=== PATIENT | female | born 1990 | race African-American/Black ===

== ENCOUNTER 2018-01-22 09:10 | Inpatient (IN) | payer MEDICAID ==
[2018-01-22] MEDS ORDERED: Sodium Chloride 0.9% 10 ML Syringe FLUSH PRN ×2 (09:18→09:21)
[2018-01-22] MEDS ORDERED: Sodium Chloride 0.9% 2.5 ML Syringe FLUSH PRN ×2 (09:18→09:21)
[2018-01-22] MEDS ORDERED: ceFAZolin 2 GM in Premix Bag 1 BAG IV ONE (09:18)
[2018-01-22] MEDS: Lactated Ringers 1,000 ML IV SCH ×4 (09:30→20:58)
[2018-01-22] MEDS ORDERED: Oxytocin/0.9 % Sodium Chloride 30 UNIT/500 ML BAG IV SCH ×2 (09:30)
[2018-01-22] MEDS ORDERED: Lactated Ringers 1,000 ML IV SCH (09:30)
[2018-01-22] MEDS ORDERED: Citric Acid/Sodium Citrate Solution 30 ML Cup PO SCH ×2 (09:30)
[2018-01-22] MEDS ORDERED: Oxytocin/0.9 % Sodium Chloride 30 UNIT/500 ML BAG ONE (09:40)
[2018-01-22] MEDS ORDERED: ceFAZolin/Dextrose,Iso-Osmotic 2 GM/50 ML Duplex Bag IV ONE (09:43)
[2018-01-22] MEDS ORDERED: Morphine PF 1 MG/ML Amp ONE (09:46)
[2018-01-22] MEDS ORDERED: Octyl 2-Cyanoacrylate 1 Tube ONE (09:50)
--- NOTE | 2018-01-22 09:52 | PCM.PREANE ---
Preanesthetic Assessment - Anesthesia/Transfusion/Family Hx Anesthesia History: Prior Anesthesia Without Reaction Family History of Anesthesia Reaction: No Transfusion History: No Prior Transfusion(s) Intubation History: Unknown - Review of Systems General: No Symptoms Pulmonary: No Symptoms Cardiovascular: No Symptoms Gastrointestinal: No Symptoms Neurological: No Symptoms Other: Reports: None - Physical Assessment Height: 1.63 m Weight: 85.729 kg ASA Class: 2 Mental Status: Alert & Oriented x3 Airway Class: Mallampati = 1 Dentition: Reports: Normal Dentition Thyro-Mental Finger Breadths: 3 Mouth Opening Finger Breadths: 3 ROM/Head Extension: Full Lungs: Clear to Auscultation, Normal Respiratory Effort Cardiovascular: Regular Rate, Regular Rhythm - Lab Values: Laboratory Last Values WBC 7.56 K/uL (4.0-11.0) 01/22/18 09:25 RBC 4.77 M/uL (4.30-5.90) 01/22/18 09:25 Hgb 11.5 g/dL (12.0-16.0) L 01/22/18 09:25 Hct 37.6 % (36.0-46.0) 01/22/18 09:25 MCV 78.8 fL (80.0-98.0) L 01/22/18 09:25 MCH 24.1 pg (27.0-32.0) L 01/22/18 09:25 MCHC 30.6 g/dL (31.0-37.0) L 01/22/18 09:25 RDW Std Deviation 45.8 fl (28.0-62.0) 01/22/18 09:25 RDW Coeff of [place]om[place] 16 % (11.0-15.0) H 01/22/18 09:25 Plt Count 292 K/uL (150-400) 01/22/18 09:25 MPV 11.10 fL (7.40-12.00) 01/22/18 09:25 Nucleated RBC % 0.0 /100WBC 01/22/18 09:25 Nucleated RBCs # 0 K/uL 01/22/18 09:25 - Allergies Allergies/Adverse Reactions: Allergies Allergy/AdvReac Type Severity Reaction Status Date / Time No Known Allergies Allergy Verified 01/18/18 08:52 - Blood Blood Available: No - Anesthesia Plan Pre-Op Medication Ordered: None - Acknowledgements Anesthesia Type Planned: Spinal Pt an Appropriate Candidate for the Planned Anesthesia: Yes Alternatives and Risks of Anesthesia Discussed w Pt/Guardian: Yes Pt/Guardian Understands and Agrees with Anesthesia Plan: Yes PreAnesthesia Questionnaire Genitourinary History: Reports: None [employer] History: Reports: Endocrine/Metabolic History: Reports: Obesity/BMI 30+ - Past Surgical History Head Surgeries/Procedures: Reports: None Female Surgical History: Reports: Section (x2) - SUBSTANCE USE Smoking Status *Q: Never Smoker Recreational Drug Use History: No - HOME MEDS Home Medications: Home Meds . [No Known Home Meds] 01/18/18 [History] - CURRENT (IN HOUSE) MEDS Current Meds: Current Medications Citric Acid/Sodium Citrate (Bicitra Solution) 30 ml PO .ONCE ALESSIA Citric Acid/Sodium Citrate (Bicitra Solution) 30 ml PO .ONCE ALESSIA Lactated Ringer's (Ringers, Lactated) 1,000 mls @ 500 mls/hr IV .BOLUS ALESSIA Last Admin: 01/22/18 09:30 Dose: 500 mls/hr Oxytocin/Sodium Chloride (Oxytocin 30 Unit/500 Ml-Ns) 30 unit in 500 mls @ 250 mls/hr IV TITRATE ALESSIA Oxytocin/Sodium Chloride (Oxytocin 30 Unit/500 Ml-Ns) 30 unit in 500 mls @ 250 mls/hr IV TITRATE ALESSIA Lactated Ringer's (Ringers, Lactated) 1,000 mls @ 500 mls/hr IV .BOLUS ALESSIA Sodium Chloride (Saline Flush) 10 ml FLUSH ASDIRECTED PRN PRN Reason: Keep Vein Open Sodium Chloride (Saline Flush) 2.5 ml FLUSH ASDIRECTED PRN PRN Reason: Keep Vein Open Sodium Chloride (Saline Flush) 10 ml FLUSH ASDIRECTED PRN PRN Reason: Keep Vein Open Sodium Chloride (Saline Flush) 2.5 ml FLUSH ASDIRECTED PRN PRN Reason: Keep Vein Open Discontinued Medications Cefazolin Sodium/Dextrose (Ancef) Confirm Administered Dose 2 gm IV .STK-MED ONE Stop: 01/22/18 09:44 Cefazolin Sodium/Dextrose 2 gm (/ Premix) 50 mls @ 100 mls/hr IV ONETIME ONE Stop: 01/22/18 09:47 Oxytocin/Sodium Chloride (Oxytocin 30 Unit/500 Ml-Ns) Confirm Administered Dose 30 unit in 500 mls @ as directed .ROUTE .STK-MED ONE Stop: 01/22/18 09:41 Morphine Sulfate (Duramorph Pf) Confirm Administered Dose 1 mg .ROUTE .STK-MED ONE Stop: 01/22/18 09:47
[2018-01-22] MEDS ORDERED: ePHEDrine 50 MG/ML SDV ONE (10:40)
[2018-01-22] MEDS ORDERED: Acetaminophen/oxyCODONE 325-5 MG Tab PO PRN (11:18)
[2018-01-22] MEDS ORDERED: Bisacodyl 10 MG Supp RECTAL PRN (11:18)
[2018-01-22] MEDS ORDERED: diphenhydrAMINE 50 MG/ML SDV IVPUSH PRN (11:18)
[2018-01-22] MEDS ORDERED: Ondansetron 4 MG/2 ML SDV IV PRN (11:18)
[2018-01-22] MEDS ORDERED: Lanolin 100% Cream 7 GM Tube TOP PRN (11:18)
[2018-01-22] MEDS ORDERED: Ibuprofen 800 MG Tab PO PRN (11:18)
--- NOTE | 2018-01-22 11:21 | PCM.LDHP ---
L&D History of Present Illness - General Date of Service: 01/22/18 Admit Problem/Dx: Patient Status Order with Admit Dx/Problem 01/22/18 09:18 Patient Status [ADT] Routine 01/22/18 09:21 Patient Status [ADT] Routine 01/22/18 11:18 Patient Status [ADT] Routine Admission Diagnosis/Problem Admission Diagnosis/Problem Source of Information: Patient History Limitations: Reports: No Limitations - History of Present Illness Improves with: Reports: None Worsens with: Reports: None Associated Symptoms: Reports: N - Related Data Allergies/Adverse Reactions: Allergies Allergy/AdvReac Type Severity Reaction Status Date / Time No Known Allergies Allergy Verified 01/18/18 08:52 Home Medications: Home Meds . 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 [employer] History: Reports: Endocrine/Metabolic History: Reports: Obesity/BMI 30+ - Past Surgical History Head Surgeries/Procedures: Reports: None Female Surgical History: Reports: Section (x2) Social & Family History - Family History Family Medical History: Noncontributory - Tobacco Use Smoking Status *Q: Never Smoker Second Hand Smoke Exposure: No - Recreational Drug Use Recreational Drug Use: No H&P Review of Systems - Review of Systems: Review Of Systems: See Below General: Reports: No Symptoms HEENT: Reports: No Symptoms Pulmonary: Reports: No Symptoms Cardiovascular: Reports: No Symptoms Gastrointestinal: Reports: No Symptoms Genitourinary: Reports: No Symptoms Musculoskeletal: Reports: No Symptoms Skin: Reports: No Symptoms Psychiatric: Reports: No Symptoms Neurological: Reports: No Symptoms Hematologic/Lymphatic: Reports: No Symptoms Immunologic: Reports: No Symptoms L&D Exam - Exam Exam: See Below - Vital Signs Weight: 87.09 kg - OB Specific Contraction Intensity: Mild Movement: Active Heart Tones: Present Presentation: Vertex - Exam General: Alert, Oriented HEENT: PERRLA, Conjunctiva Clear, EACs Clear, EOMI, Hearing Intact, Mucosa Moist & [place], Nares Patent, Normal Nasal Septum, Posterior Pharynx Clear, TMs Clear Neck: Supple, Trachea Midline Lungs: Clear to Auscultation, Normal Respiratory Effort Cardiovascular: Regular Rate, Regular Rhythm GI/Abdominal Exam: Normal Bowel Sounds, Soft, Non-Tender, No Organomegaly, No Distention, No Abnormal Bruit, No Mass, Pelvis Stable Rectal Exam: Normal Exam, Normal Rectal Tone Genitourinary: Normal external exam, Normal bimanual exam, Normal speculum exam Back Exam: Normal Inspection, Full Range of Motion Extremities: Normal Inspection, Normal Range of Motion, Non-Tender, No Pedal Edema, Normal Capillary Refill Skin: Warm, Dry, Intact Neurological: Cranial Nerves Intact, Reflexes Equal Bilateral Psychiatric: Alert, Normal Affect, Normal Mood - Patient Data Lab Results Last 24 hrs: Laboratory Results - last 24 hr 01/22/18 01/22/18 Range/Units 09:25 09:33 WBC 7.56 (4.0-11.0) K/uL RBC 4.77 (4.30-5.90) M/uL Hgb 11.5 L (12.0-16.0) g/dL Hct 37.6 (36.0-46.0) % MCV 78.8 L (80.0-98.0) fL MCH 24.1 L (27.0-32.0) pg MCHC 30.6 L (31.0-37.0) g/dL RDW Std Deviation 45.8 (28.0-62.0) fl RDW Coeff of Salom[place] 16 H (11.0-15.0) % Plt Count 292 (150-400) K/uL MPV 11.10 (7.40-12.00) fL Nucleated RBC % 0.0 /100WBC Nucleated RBCs # 0 K/uL Blood Type B NEGATIVE Antibody Screen NEGATIVE Result Diagrams: 01/22/18 09:25 Problem List Initiated/Reviewed/Updated: Yes Orders Last 24hrs: Active Orders 24 hr Category Date Time Status Patient Status [ADT] Routine ADT 01/22/18 11:18 Ordered Ambulate [RC] PER UNIT ROUTINE Care 01/22/18 11:18 Ordered Communication Order [RC] PER UNIT ROUTINE Care 01/22/18 11:18 Ordered Communication Order [RC] PER UNIT ROUTINE Care 01/22/18 11:18 Ordered Communication Order [RC] Per Unit Routine Care 01/22/18 11:18 Ordered Non Stress Test [RC] PER UNIT ROUTINE Care 01/22/18 09:18 Active Non Stress Test [RC] PER UNIT ROUTINE Care 01/22/18 09:21 Active May Shower [RC] ASDIRECTED Care 01/22/18 11:18 Ordered Notify Provider Vital Signs [RC] PRN Care 01/22/18 09:19 Active Procedure Site Prep Instruct [RC] ASDIRECTED Care 01/22/18 09:18 Active Procedure Site Prep Instruct [RC] ASDIRECTED Care 01/22/18 09:21 Active RT Incentive Spirometry [RC] Q2HWA Care 01/22/18 11:18 Ordered Up ad Flora [RC] ASDIRECTED Care 01/22/18 09:18 Active Up ad Flora [RC] ASDIRECTED Care 01/22/18 09:21 Active Verify Patient Consent Obtain [RC] ASDIRECTED Care 01/22/18 09:18 Active Verify Patient Consent Obtain [RC] ASDIRECTED Care 01/22/18 09:21 Active Vital Signs [RC] PER UNIT ROUTINE Care 01/22/18 09:18 Active Vital Signs [RC] PER UNIT ROUTINE Care 01/22/18 09:21 Active Vital Signs [RC] PER UNIT ROUTINE Care 01/22/18 11:18 Ordered HEMOGLOBIN/HEMATOCRIT,HH [HEME] Timed Lab 01/23/18 05:11 Ordered Acetaminophen/oxyCODONE [Percocet 325-5 MG] Med 01/22/18 11:18 Ordered 1 tab PO Q4H PRN Acetaminophen/oxyCODONE [Percocet 325-5 MG] Med 01/22/18 11:18 Ordered 2 tab PO Q4H PRN Bisacodyl [Dulcolax] Med 01/22/18 11:18 Ordered 10 mg RECTAL .ONCE PRN Citric Acid/Sodium Citrate [Bicitra Solution] Med 01/22/18 09:30 Active 30 ml PO .ONCE Citric Acid/Sodium Citrate [Bicitra Solution] Med 01/22/18 09:30 Active 30 ml PO .ONCE Docusate Sodium [Colace] Med 01/22/18 21:00 Ordered 100 mg PO BID Ibuprofen [Motrin] Med 01/22/18 11:18 Ordered 800 mg PO Q8H PRN Ketorolac [Toradol] Med 01/22/18 11:30 Ordered 30 mg IVPUSH Q6H Lactated Ringers @ 125 MLS/HR(1000ml) Med 01/22/18 11:30 Ordered Lactated Ringers [Ringers, Lactated] 1,000 ml IV ASDIRECTED Lactated Ringers [Ringers, Lactated] 1,000 ml [facility] 01/22/18 09:30 Active IV .BOLUS Lactated Ringers [Ringers, Lactated] 1,000 ml [facility] 01/22/18 09:30 Active IV .BOLUS Lanolin [Lansinoh HPA] [facility] 01/22/18 11:18 Ordered See Dose Instructions TOP ASDIRECTED PRN Ondansetron [Zofran] [facility] 01/22/18 11:18 Ordered 4 mg IV Q4H PRN Oxytocin/0.9 % Sodium Chloride [Oxytocin 30 Unit/500 ML [facility] 01/22/18 09:30 Active -NS] 30 unit in 500 ml IV TITRATE Oxytocin/0.9 % Sodium Chloride [Oxytocin 30 Unit/500 ML [facility] 01/22/18 09:30 Active -NS] 30 unit in 500 ml IV TITRATE Sodium Chloride 0.9% [Saline Flush] [facility] 01/22/18 09:18 Active 10 ml FLUSH ASDIRECTED PRN Sodium Chloride 0.9% [Saline Flush] [facility] 01/22/18 09:21 Active 10 ml FLUSH ASDIRECTED PRN Sodium Chloride 0.9% [Saline Flush] [facility] 01/22/18 09:18 Active 2.5 ml FLUSH ASDIRECTED PRN Sodium Chloride 0.9% [Saline Flush] [facility] 01/22/18 09:21 Active 2.5 ml FLUSH ASDIRECTED PRN diphenhydrAMINE [Benadryl] [facility] 01/22/18 11:18 Ordered 25 mg IVPUSH Q6H PRN Assess Lochia [WOMSER] Per Unit Routine [facility] 01/22/18 11:18 Ordered Assess Uterine Involution [WOMSER] Per Unit Routine [facility] 01/22/18 11:18 Ordered Breast Pump [WOMSER] Per Unit Routine [facility] 01/22/18 11:18 Ordered Peripheral IV Discontinue [OM.PC] Routine [facility] 01/22/18 11:18 Ordered Peripheral IV Insertion Adult [OM.PC] Routine [facility] 01/22/18 09:18 Ordered Peripheral IV Insertion Adult [OM.PC] Routine [facility] 01/22/18 09:21 Ordered Schedule Procedure [COMM] Per Unit Routine [facility] 01/22/18 09:21 Ordered Sequential Compression Device [OM.PC] Per Unit Routine [facility] 01/22/18 11:18 Ordered Resuscitation Status Routine Resus Stat 01/22/18 09:18 Ordered Medication Orders Citric Acid/Sodium Citrate (Bicitra Solution) 30 ml PO .ONCE ALESSIA Citric Acid/Sodium Citrate (Bicitra Solution) 30 ml PO .ONCE ALESSIA Lactated Ringer's (Ringers, Lactated) 1,000 mls @ 500 mls/hr IV .BOLUS ALESSIA Last Admin: 01/22/18 10:05 Dose: 500 mls/hr Infusion: 01/22/18 10:05 Dose: 500 mls/hr Admin: 01/22/18 09:30 Dose: 500 mls/hr Oxytocin/Sodium Chloride (Oxytocin 30 Unit/500 Ml-Ns) 30 unit in 500 mls @ 250 mls/hr IV TITRATE ALESSIA Oxytocin/Sodium Chloride (Oxytocin 30 Unit/500 Ml-Ns) 30 unit in 500 mls @ 250 mls/hr IV TITRATE ALESSIA Lactated Ringer's (Ringers, Lactated) 1,000 mls @ 500 mls/hr IV .BOLUS ALESSIA Sodium Chloride (Saline Flush) 10 ml FLUSH ASDIRECTED PRN PRN Reason: Keep Vein Open Sodium Chloride (Saline Flush) 2.5 ml FLUSH ASDIRECTED PRN PRN Reason: Keep Vein Open Sodium Chloride (Saline Flush) 10 ml FLUSH ASDIRECTED PRN PRN Reason: Keep Vein Open Sodium Chloride (Saline Flush) 2.5 ml FLUSH ASDIRECTED PRN PRN Reason: Keep Vein Open Assessment/Plan Comment:: Termpregnancy admitted for elective repeat C/section.
--- NOTE | 2018-01-22 11:22 | PCM.OPNOTE ---
- General Post-Op/Procedure Note Date of Surgery/Procedure: 01/22/18 Operative Procedure(s): Repeat C/section Post-Op Diagnosis: Same Anesthesia Technique: Spinal Primary Surgeon: Anuj Barr EBL in mLs: 700 Complications: None Condition: Good
--- NOTE | 2018-01-22 11:45 | PCM.POSTAN ---
POST ANESTHESIA ASSESSMENT - MENTAL STATUS Mental Status: Alert, Oriented - RESPIRATORY Respiratory Status: Respiratory Rate WNL, Airway Patent, O2 Saturation Stable - CARDIOVASCULAR CV Status: Pulse Rate WNL, Blood Pressure Stable - GASTROINTESTINAL GI Status: No Symptoms - POST OP HYDRATION Hydration Status: Adequate & Stable
--- NOTE | 2018-01-22 12:04 | OR ---
SURGEON: Anuj Barr MD DATE OF PROCEDURE: PREOPERATIVE DIAGNOSES: 1. Term . 2. Previous section. 3. Admitted for elective repeat section. POSTOPERATIVE DIAGNOSES: 1. Term . 2. Previous section. 3. Admitted for elective repeat section. OPERATION PERFORMED: Repeat low-transverse section. COLLET MAKER: OR merissa. ANESTHESIA: Spinal Dr. Valdes. ESTIMATED BLOOD LOSS: 700 mL. COMPLICATIONS: None. FINDINGS: Male fetus. score reported to be 8 and 9. The weight is 9 pounds. INDICATION FOR SURGERY: The patient had a previous section. She is admitted for elective repeat section. PROCEDURE IN DETAIL: The patient was brought to the OR, properly identified. After adequate level of anesthesia, the patient was placed in lithotomy position, prepped and draped in sterile fashion as usual with a Santizo catheter in the bladder. After taking time-out, a low-transverse Pfannenstiel skin incision was done through the old scar. Mireya fascia and rectus fascia opened in the direction of the incision. The 2 recti muscles were and peritoneal cavity was entered. Bladder flap was raised in the usual manner and then low-transverse uterine incision extended manually with the hand. Fetus was delivered, handed to the nurse resuscitator, who was present at the time of the delivery. The fetus cried and score reported to be 8 and 9 and the weight is 9 pounds. The placenta delivered spontaneous, complete, and intact and repair of the lower uterine segment was done with 2-0 Vicryl continuous interlocking for 2 layers. Reperitonealization done with 3-0 Vicryl continuous and then the peritoneal cavity closed with 3-0 Vicryl continuous and closed with 3-0 Vicryl and the rectus fascia was closed with #1 PDS double strand continuous, Mireya's fascia with 3-0 Vicryl continuous, and the skin closed with skin clips, Insorb, and Dermabond. Instrument and sponge count correct. The patient tolerated the procedure well, went to recovery room in stable general condition. LAUREN / LA /[id number]
[2018-01-22] MEDS ORDERED: Nalbuphine 10 MG/ML 10 ML MDV IVPUSH PRN (12:35)
[2018-01-22] MEDS ORDERED: Naloxone 0.4 MG/ML Syringe IVPUSH PRN (12:35)
[2018-01-22] MEDS: Ketorolac 30 MG/ML SDV IVPUSH SCH ×2 (12:36→23:10)
[2018-01-22] MEDS ORDERED: Methylergonovine 0.2 MG/1 ML Amp IM PRN (16:59)
[2018-01-22] MEDS ORDERED: Methylergonovine 0.2 MG/1 ML Amp ONE (17:09)
[2018-01-22] MEDS ORDERED: Morphine 4 MG/ML Syringe IVPUSH PRN (20:35)
[2018-01-22] MEDS: Docusate Sodium 100 MG Cap PO SCH (22:13)
[2018-01-22] MEDS: diphenhydrAMINE 50 MG/ML SDV IVPUSH PRN (22:13)
[2018-01-23] MEDS: Acetaminophen/oxyCODONE 325-5 MG Tab PO PRN ×2 (04:38→16:22)
[2018-01-23] MEDS: diphenhydrAMINE 50 MG/ML SDV IVPUSH PRN (04:39)
[2018-01-23] MEDS: Lactated Ringers 1,000 ML IV SCH (05:09)
--- NOTE | 2018-01-23 06:24 | PCM.PNPP ---
- General Info Date of Service: 01/23/18 Admission Dx/Problem (Free Text): Patient Status Order with Admit Dx/Problem 01/22/18 09:18 Patient Status [ADT] Routine 01/22/18 09:21 Patient Status [ADT] Routine 01/22/18 11:18 Patient Status [ADT] Routine Admission Diagnosis/Problem Admission Diagnosis/Problem Functional Status: Reports: Pain Controlled, Tolerating Diet - Review of Systems General: Reports: No Symptoms HEENT: Reports: No Symptoms Pulmonary: Reports: No Symptoms Cardiovascular: Reports: No Symptoms Gastrointestinal: Reports: No Symptoms Genitourinary: Reports: No Symptoms Musculoskeletal: Reports: No Symptoms Skin: Reports: No Symptoms Neurological: Reports: No Symptoms Psychiatric: Reports: No Symptoms - General Info Date of Service: 01/23/18 - Patient Data Vital Signs - Most Recent: Last Vital Signs Temp 36.4 C 01/23/18 04:30 Pulse 98 01/23/18 01:28 Resp 15 01/23/18 05:00 BP 103/62 01/23/18 04:30 Pulse Ox 96 01/23/18 05:00 Weight - Most Recent: 87.09 kg I&O - Last 24 Hours: Intake & Output 01/22/18 01/22/18 01/23/18 14:59 22:59 06:59 Intake Total 1500 3200 1002 Output Total 950 2900 1015 Balance 550 300 -13 Lab Results - Last 24 Hours: Laboratory Results - last 24 hr 01/22/18 01/22/18 01/22/18 Range/Units 09:25 09:33 12:18 WBC 7.56 (4.0-11.0) K/uL RBC 4.77 (4.30-5.90) M/uL Hgb 11.5 L (12.0-16.0) g/dL Hct 37.6 (36.0-46.0) % MCV 78.8 L (80.0-98.0) fL MCH 24.1 L (27.0-32.0) pg MCHC 30.6 L (31.0-37.0) g/dL RDW Std Deviation 45.8 (28.0-62.0) fl RDW Coeff of [place]om[place] 16 H (11.0-15.0) % Plt Count 292 (150-400) K/uL MPV 11.10 (7.40-12.00) fL Nucleated RBC % 0.0 /100WBC Nucleated RBCs # 0 K/uL Blood Type B NEGATIVE Antibody Screen NEGATIVE Screen NEGATIVE (NEGATIVE) RhIG Candidate? YES Rhogam Indicated YES, BABY RH POS H 01/22/18 Range/Units 17:18 WBC (4.0-11.0) K/uL RBC (4.30-5.90) M/uL Hgb 9.6 L (12.0-16.0) g/dL Hct 31.5 L (36.0-46.0) % MCV (80.0-98.0) fL MCH (27.0-32.0) pg MCHC (31.0-37.0) g/dL RDW Std Deviation (28.0-62.0) fl RDW Coeff of [place]om[place] (11.0-15.0) % Plt Count (150-400) K/uL MPV (7.40-12.00) fL Nucleated RBC % /100WBC Nucleated RBCs # K/uL Blood Type Antibody Screen Screen (NEGATIVE) RhIG Candidate? Rhogam Indicated Med Orders - Current: Current Medications Bisacodyl (Dulcolax) 10 mg RECTAL .ONCE PRN PRN Reason: Constipation Diphenhydramine HCl (Benadryl) 25 mg IVPUSH Q6H PRN PRN Reason: Itching or Nausea Diphenhydramine HCl (Benadryl) 25 mg IVPUSH Q4H PRN PRN Reason: Itching Stop: 01/23/18 12:40 Last Admin: 01/23/18 04:39 Dose: 25 mg Docusate Sodium (Colace) 100 mg PO BID [facility] Last Admin: 01/22/18 22:13 Dose: 100 mg Emollient Ointment (Lansinoh Hpa) 0 gm TOP ASDIRECTED PRN PRN Reason: Sore Nipples Lactated Ringer's (Ringers, Lactated) 1,000 mls @ 125 mls/hr IV ASDIRECTED [facility] Last Admin: 01/23/18 05:09 Dose: 125 mls/hr Ibuprofen (Motrin) 800 mg PO Q8H PRN PRN Reason: mild pain or fever Methylergonovine Maleate (Methergine) 0.2 mg IM Q4H PRN PRN Reason: Bleeding Last Admin: 01/22/18 17:12 Dose: 0.2 mg Morphine Sulfate (Morphine) 4 mg IVPUSH Q4H PRN PRN Reason: Pain Nalbuphine HCl (Nubain) 5 mg IVPUSH Q3H PRN PRN Reason: Pruritis Stop: 01/23/18 12:39 Naloxone HCl (Narcan) 0.1 mg IVPUSH ONETIME PRN PRN Reason: Respiratory Depression Stop: 01/23/18 12:39 Ondansetron HCl (Zofran) 4 mg IV Q4H PRN PRN Reason: Nausea/Vomiting Last Admin: 01/22/18 20:07 Dose: 4 mg Oxycodone/Acetaminophen (Percocet 325-5 Mg) 1 tab PO Q4H PRN PRN Reason: Pain (moderate 4-6) Last Admin: 01/23/18 04:38 Dose: 1 tab Oxycodone/Acetaminophen (Percocet 325-5 Mg) 2 tab PO Q4H PRN PRN Reason: Pain (moderate 4-6) Sodium Chloride (Saline Flush) 10 ml FLUSH ASDIRECTED PRN PRN Reason: Keep Vein Open Sodium Chloride (Saline Flush) 2.5 ml FLUSH ASDIRECTED PRN PRN Reason: Keep Vein Open Sodium Chloride (Saline Flush) 10 ml FLUSH ASDIRECTED PRN PRN Reason: Keep Vein Open Sodium Chloride (Saline Flush) 2.5 ml FLUSH ASDIRECTED PRN PRN Reason: Keep Vein Open Discontinued Medications Cefazolin Sodium/Dextrose (Ancef) Confirm Administered Dose 2 gm IV .STK-MED ONE Stop: 01/22/18 09:44 Citric Acid/Sodium Citrate (Bicitra Solution) 30 ml PO .ONCE ALESSIA Citric Acid/Sodium Citrate (Bicitra Solution) 30 ml PO .ONCE ALESSIA Ephedrine Sulfate (Ephedrine Sulfate) Confirm Administered Dose 50 mg .ROUTE .STK-MED ONE Stop: 01/22/18 10:41 Cefazolin Sodium/Dextrose 2 gm (/ Premix) 50 mls @ 100 mls/hr IV ONETIME ONE Stop: 01/22/18 09:47 Last Admin: 01/22/18 23:10 Dose: Not Given Lactated Ringer's (Ringers, Lactated) 1,000 mls @ 500 mls/hr IV .BOLUS LAESSIA Last Admin: 01/22/18 10:05 Dose: 500 mls/hr Oxytocin/Sodium Chloride (Oxytocin 30 Unit/500 Ml-Ns) 30 unit in 500 mls @ 250 mls/hr IV TITRATE ALESSIA Oxytocin/Sodium Chloride (Oxytocin 30 Unit/500 Ml-Ns) 30 unit in 500 mls @ 250 mls/hr IV TITRATE ALESSIA Lactated Ringer's (Ringers, Lactated) 1,000 mls @ 500 mls/hr IV .BOLUS ALESSIA Oxytocin/Sodium Chloride (Oxytocin 30 Unit/500 Ml-Ns) Confirm Administered Dose 30 unit in 500 mls @ as directed .ROUTE .STK-MED ONE Stop: 01/22/18 09:41 Last Admin: 01/22/18 23:08 Dose: Not Given Ketorolac Tromethamine (Toradol) 30 mg IVPUSH Q6H [facility] Stop: 01/23/18 11:31 Last Admin: 01/22/18 23:10 Dose: Not Given Methylergonovine Maleate (Methergine) Confirm Administered Dose 0.2 mg .ROUTE .STK-MED ONE Stop: 01/22/18 17:10 Last Admin: 01/22/18 23:08 Dose: Not Given Morphine Sulfate (Duramorph Pf) Confirm Administered Dose 1 mg .ROUTE .STK-MED ONE Stop: 01/22/18 09:47 Octyl Cyanoacrylate (Dermabond Advance) Confirm Administered Dose 1 applic .ROUTE .STK-MED ONE Stop: 01/22/18 09:51 - Infant Interaction Disposition, : [place] in Room with Family Interaction: Holding Infant Infant Feeding: Bottle Fed Infant Support Person: - Recovery Exam Fundal Tone: Firm Fundal Level: At Umbilicus Fundal Placement: Midline Lochia Amount: Scant Lochia Color: Rubra/Red Perineum Description: Intact, Minimal Bruising/Swelling Episiotomy/Laceration: None Bladder Status: Indwelling Catheter in Place Urinary Elimination: Indwelling Catheter - Exam General: Alert, Oriented, Cooperative, No Acute Distress Lungs: Clear to Auscultation, Normal Respiratory Effort Cardiovascular: Regular Rate, Regular Rhythm, No Murmurs GI/Abdominal Exam: Normal Bowel Sounds, Soft, Non-Tender, No Organomegaly, No Distention, No Abnormal Bruit, No Mass, Pelvis Stable Extremities: Normal Inspection, Normal Range of Motion, Non-Tender, No Pedal Edema, Normal Capillary Refill Skin: Warm, Dry, Intact Wound/Incisions: Healing Well, Dressing Dry and Intact Neurological: No New Focal Deficit, Normal Speech, Normal Tone Psy/Mental Status: Alert, Normal Affect, Normal Mood - Problem List & Annotations (1) Supervision of normal IUP (intrauterine ) in multigravida SNOMED Code(s): 715651181, 382073225, 647449367 Code(s): Z34.80 - ENCOUNTER FOR SUPRVSN OF NORMAL , UNSP TRIMESTER Status: Acute Priority: High Current Visit: Yes Qualifiers: Trimester: third trimester Qualified Code(s): Z34.83 - Encounter for supervision of other normal , third trimester (2) delivery delivered SNOMED Code(s): 764624789 Code(s): O82 - ENCOUNTER FOR DELIVERY WITHOUT INDICATION Status: Acute Priority: High Current Visit: Yes - Problem List Review Problem List Initiated/Reviewed/Updated: Yes - Plan Plan:: Termpregnancy admitted for elective repeat C/section. Post day 1 A: RCS, pp day 1, VSS, AF, dressing dry and intact. Lochia small. Santizo to BSB, in room, holding and bonding well. Partner sleeping at BS. P: Continue pp plan of care. Encouraged to walk.
--- NOTE | 2018-01-23 08:06 | PCM48HPAN ---
Post Anesthesia Note - EVALUATION WITHIN 48HRS OF ANESTHETIC Vital Signs in Normal Range: Yes Patient Participated in Evaluation: Yes Respiratory Function Stable: Yes Airway Patent: Yes Cardiovascular Function Stable: Yes Hydration Status Stable: Yes Pain Control Satisfactory: Yes Nausea and Vomiting Control Satisfactory: Yes Mental Status Recovered: Yes Resp Rate: 15
[2018-01-23] MEDS: Docusate Sodium 100 MG Cap PO SCH ×2 (09:24→21:37)
[2018-01-24] MEDS: Acetaminophen/oxyCODONE 325-5 MG Tab PO PRN ×3 (01:34→12:51)
[2018-01-24] MEDS: Docusate Sodium 100 MG Cap PO SCH (08:03)
--- NOTE | 2018-01-24 08:57 | PCM.PNPP ---
- General Info Date of Service: 01/24/18 Functional Status: Reports: Pain Controlled - Review of Systems General: Reports: No Symptoms HEENT: Reports: No Symptoms Pulmonary: Reports: No Symptoms Cardiovascular: Reports: No Symptoms Gastrointestinal: Reports: No Symptoms Genitourinary: Reports: No Symptoms Musculoskeletal: Reports: No Symptoms Skin: Reports: No Symptoms Neurological: Reports: No Symptoms Psychiatric: Reports: No Symptoms - General Info Date of Service: 01/24/18 - Patient Data Vital Signs - Most Recent: Last Vital Signs Temp 36.7 C 01/24/18 08:01 Pulse 73 01/24/18 08:01 Resp 16 01/24/18 08:01 BP 102/59 L 01/24/18 08:01 Pulse Ox 98 01/24/18 08:01 Weight - Most Recent: 87.09 kg Med Orders - Current: Current Medications Bisacodyl (Dulcolax) 10 mg RECTAL .ONCE PRN PRN Reason: Constipation Diphenhydramine HCl (Benadryl) 25 mg IVPUSH Q6H PRN PRN Reason: Itching or Nausea Docusate Sodium (Colace) 100 mg PO BID [facility] Last Admin: 01/24/18 08:03 Dose: 100 mg Emollient Ointment (Lansinoh Hpa) 0 gm TOP ASDIRECTED PRN PRN Reason: Sore Nipples Lactated Ringer's (Ringers, Lactated) 1,000 mls @ 125 mls/hr IV ASDIRECTED [facility] Last Admin: 01/23/18 05:09 Dose: 125 mls/hr Ibuprofen (Motrin) 800 mg PO Q8H PRN PRN Reason: mild pain or fever Last Admin: 01/24/18 08:04 Dose: 800 mg Methylergonovine Maleate (Methergine) 0.2 mg IM Q4H PRN PRN Reason: Bleeding Last Admin: 01/22/18 17:12 Dose: 0.2 mg Morphine Sulfate (Morphine) 4 mg IVPUSH Q4H PRN PRN Reason: Pain Ondansetron HCl (Zofran) 4 mg IV Q4H PRN PRN Reason: Nausea/Vomiting Last Admin: 01/22/18 20:07 Dose: 4 mg Oxycodone/Acetaminophen (Percocet 325-5 Mg) 1 tab PO Q4H PRN PRN Reason: Pain (moderate 4-6) Last Admin: 01/24/18 08:03 Dose: 1 tab Oxycodone/Acetaminophen (Percocet 325-5 Mg) 2 tab PO Q4H PRN PRN Reason: Pain (moderate 4-6) Sodium Chloride (Saline Flush) 10 ml FLUSH ASDIRECTED PRN PRN Reason: Keep Vein Open Sodium Chloride (Saline Flush) 2.5 ml FLUSH ASDIRECTED PRN PRN Reason: Keep Vein Open Sodium Chloride (Saline Flush) 10 ml FLUSH ASDIRECTED PRN PRN Reason: Keep Vein Open Sodium Chloride (Saline Flush) 2.5 ml FLUSH ASDIRECTED PRN PRN Reason: Keep Vein Open Discontinued Medications Cefazolin Sodium/Dextrose (Ancef) Confirm Administered Dose 2 gm IV .STK-MED ONE Stop: 01/22/18 09:44 Citric Acid/Sodium Citrate (Bicitra Solution) 30 ml PO .ONCE ALESSIA Citric Acid/Sodium Citrate (Bicitra Solution) 30 ml PO .ONCE ALESSIA Diphenhydramine HCl (Benadryl) 25 mg IVPUSH Q4H PRN PRN Reason: Itching Stop: 01/23/18 12:40 Last Admin: 01/23/18 04:39 Dose: 25 mg Ephedrine Sulfate (Ephedrine Sulfate) Confirm Administered Dose 50 mg .ROUTE .STK-MED ONE Stop: 01/22/18 10:41 Cefazolin Sodium/Dextrose 2 gm (/ Premix) 50 mls @ 100 mls/hr IV ONETIME ONE Stop: 01/22/18 09:47 Last Admin: 01/22/18 23:10 Dose: Not Given Lactated Ringer's (Ringers, Lactated) 1,000 mls @ 500 mls/hr IV .BOLUS ALESSIA Last Admin: 01/22/18 10:05 Dose: 500 mls/hr Oxytocin/Sodium Chloride (Oxytocin 30 Unit/500 Ml-Ns) 30 unit in 500 mls @ 250 mls/hr IV TITRATE ALESSIA Oxytocin/Sodium Chloride (Oxytocin 30 Unit/500 Ml-Ns) 30 unit in 500 mls @ 250 mls/hr IV TITRATE ALESSIA Lactated Ringer's (Ringers, Lactated) 1,000 mls @ 500 mls/hr IV .BOLUS ALESSIA Oxytocin/Sodium Chloride (Oxytocin 30 Unit/500 Ml-Ns) Confirm Administered Dose 30 unit in 500 mls @ as directed .ROUTE .STK-MED ONE Stop: 01/22/18 09:41 Last Admin: 01/22/18 23:08 Dose: Not Given Ketorolac Tromethamine (Toradol) 30 mg IVPUSH Q6H ALESSIA Stop: 01/23/18 11:31 Last Admin: 01/22/18 23:10 Dose: Not Given Methylergonovine Maleate (Methergine) Confirm Administered Dose 0.2 mg .ROUTE .STK-MED ONE Stop: 01/22/18 17:10 Last Admin: 01/22/18 23:08 Dose: Not Given Morphine Sulfate (Duramorph Pf) Confirm Administered Dose 1 mg .ROUTE .STK-MED ONE Stop: 01/22/18 09:47 Nalbuphine HCl (Nubain) 5 mg IVPUSH Q3H PRN PRN Reason: Pruritis Stop: 01/23/18 12:39 Naloxone HCl (Narcan) 0.1 mg IVPUSH ONETIME PRN PRN Reason: Respiratory Depression Stop: 01/23/18 12:39 Octyl Cyanoacrylate (Dermabond Advance) Confirm Administered Dose 1 applic .ROUTE .STK-MED ONE Stop: 01/22/18 09:51 - Infant Interaction Disposition, : in Room with Family Infant Interaction: Holding Feeding: Bottle Fed Support Person: - Recovery Exam Fundal Tone: Firm Fundal Level: At Umbilicus Fundal Placement: Midline Lochia Amount: Small Lochia Color: Rubra/Red Perineum Description: Intact, Minimal Bruising/Swelling Episiotomy/Laceration: None Bladder Status: Voiding Urinary Elimination: Voided - Exam General: Alert, Oriented HEENT: Pupils Equal Neck: Supple Lungs: Clear to Auscultation, Normal Respiratory Effort Cardiovascular: Regular Rate, Regular Rhythm GI/Abdominal Exam: Normal Bowel Sounds, Soft, Non-Tender, No Organomegaly, No Distention, No Abnormal Bruit, No Mass, Pelvis Stable Extremities: Normal Inspection, Normal Range of Motion, Non-Tender, No Pedal Edema, Normal Capillary Refill Skin: Warm, Dry, Intact Wound/Incisions: Healing Well Neurological: No New Focal Deficit Psy/Mental Status: Alert, Normal Affect, Normal Mood - Problem List Review Problem List Initiated/Reviewed/Updated: Yes - My Orders Last 24 Hours: My Active Orders 01/23/18 08:44 Transfuse PRBC [Transfuse Red Blood Cells] [COMM] Urgent 01/24/18 Breakfast Regular Diet [DIET] - Plan Plan:: Termpregnancy admitted for elective repeat C/section. Post day 1 A: RCS, pp day 1, VSS, AF, dressing dry and intact. Lochia small. Santizo to BSB, Infant in room, holding and bonding well. Partner sleeping at BS. P: Continue pp plan of care. Encouraged to walk.
== END 2018-01-24 13:10 | disposition home or self-care (01) | DRG 766 ==
LOC: MW.OB 09:10
PROVIDERS: ADMIT Obstetrics & Gynecology; ATTEND Obstetrics & Gynecology
PROC: 10D00Z1 Extraction of Products of Conception, Low, Open Approach (ICD-10-PCS; principal; 2018-01-22)
DX: O34.211 Maternal care for low transverse scar from previous cesarean delivery (principal); Z3A.40 40 weeks gestation of pregnancy; Z37.0 Single live birth
CPT/HCPCS: 36415; 59025; 85014; 85018; 85027; 85460; 86850; 86900; 86901; A9270-GY; J0690; J1200; J1885; J2210; J2274; J2405; J2790; J7120

== ENCOUNTER 2019-07-03 16:00 | Emergency (ER) | payer SELFPAY ==
[2019-07-03] MEDS ORDERED: Ondansetron 4 MG/2 ML SDV IVPUSH ONE (16:10)
[2019-07-03] MEDS ORDERED: Metoclopramide 10 MG/2 ML SDV IV ONE (16:10)
[2019-07-03] MEDS ORDERED: diphenhydrAMINE 50 MG/ML SDV IVPUSH ONE (16:10)
[2019-07-03] MEDS ORDERED: Sodium Chloride 0.9% 1,000 ML IV ONE (16:10)
--- NOTE | 2019-07-03 16:31 | EDM.PDOC ---
ED HPI GENERAL MEDICAL PROBLEM - General Chief Complaint: Headache Stated Complaint: HEADACHE Time Seen by Provider: 07/03/19 16:01 Source of Information: Reports: Patient History Limitations: Reports: No Limitations - History of Present Illness INITIAL COMMENTS - FREE TEXT/NARRATIVE: HISTORY AND PHYSICAL: History of present illness: Patient is a 29-year-old female who presents to the ED today via EMS for concern of headache that occurred just a few hours prior to arrival to the ED. Patient states before onset of her headache she didn't see floaters in her vision. Patient states the floaters in her vision resolved and she began having a headache. Patient states she tried taking a nap but continued to wake up with the headache. Patient states she had a headache similar to this a few weeks ago but does not have a history of migraine headaches in the past. Patient denies any other symptoms or concerns. Patient denies fever, chills, chest pain, shortness of breath, or cough. Denies neck stiff ness, change in vision, syncope, or near syncope. Denies nausea, vomiting, abdominal pain, diarrhea, constipation, or dysuria. Has not noted any blood in urine or stool. Patient has been eating and drinking appropriately. Review of systems: As per history of present illness and below otherwise all systems reviewed and negative. Past medical history: As per history of present illness and as reviewed below otherwise noncontributory. Surgical history: As per history of present illness and as reviewed below otherwise noncontributory. Social history: See social history for further information Family history: As per history of present illness and as reviewed below otherwise noncontributory. Physical exam: General: Patient is alert, oriented, and in no acute distress. Patient sitting comfortably on exam table. HEENT: Atraumatic, normocephalic, pupils equal and reactive bilaterally, negative for conjunctival pallor or scleral icterus, mucous membranes moist, TMs normal bilaterally, throat clear, neck supple, nontender, trachea midline. No drooling or trismus noted. No meningeal signs. No hot potato voice noted. Lungs: Clear to auscultation, breath sounds equal bilaterally, chest nontender. Heart: S1S2, regular rate and rhythm without overt murmur Abdomen: Soft, nondistended, nontender. Negative for masses or hepatosplenomegaly. Negative for costovertebral tenderness. Pelvis: Stable nontender. Genitourinary: Deferred. Rectal: Deferred. Skin: Intact, warm, dry. No lesions or rashes noted. Extremities: Atraumatic, negative for cords or calf pain. Neurovascular unremarkable. Neuro: Awake, alert, oriented. Cranial nerves II through XII unremarkable. Cerebellum unremarkable. Motor and sensory unremarkable throughout. Exam nonfocal. Notes: Patient states she does have a follow-up appointment on Monday with a primary care provider already. Patient expresses resolution of symptoms today in the ED. Discussed the importance for follow-up with the primary care provider. Voices understanding and is agreeable to plan of care. Denies any further questions or concerns at this time. Diagnostics: Head CT, UA, Uhcg [employer]: Saline, Toradol, Zofran, Benadryl, Reglan Prescription: None Impression: Headache Plan: 1. Encourage small but frequent sips of fluid to prevent dehydration. 2. You can alternate ibuprofen and Tylenol as directed for pain and discomfort. 3. Follow up with your primary care provider as discussed. Return to the ED as needed and as discussed. Definitive disposition and diagnosis as appropriate pending reevaluation and review of above. headache Pain Score (Numeric/FACES): 10 - Related Data Allergies Allergy/AdvReac Type Severity Reaction Status Date / Time No Known Allergies Allergy Verified 07/03/19 16:02 Home Meds: Home Meds . [No Known Home Meds] 01/18/18 [History] Past Medical History HEENT History: Reports: None Cardiovascular History: Reports: None Respiratory History: Reports: None Gastrointestinal History: Reports: None Genitourinary History: Reports: None KELP OR SEAGR[facility] GATHERER History: Reports: Musculoskeletal History: Reports: None Neurological History: Reports: None Psychiatric History: Reports: None Endocrine/Metabolic History: Reports: Obesity/BMI 30+ Hematologic History: Reports: None Immunologic History: Reports: None Oncologic (Cancer) History: Reports: None Dermatologic History: Reports: None - Past Surgical History Head Surgeries/Procedures: Reports: None HEENT Surgical History: Reports: None Cardiovascular Surgical History: Reports: None Respiratory Surgical History: Reports: None GI Surgical History: Reports: None Female Surgical History: Reports: Section Endocrine Surgical History: Reports: None Neurological Surgical History: Reports: None Musculoskeletal Surgical History: Reports: None Oncologic Surgical History: Reports: None Dermatological Surgical History: Reports: None Social & Family History - Family History Family Medical History: Noncontributory - Tobacco Use Smoking Status *Q: Never Smoker Second Hand Smoke Exposure: No - Caffeine Use Caffeine Use: Reports: None - Recreational Drug Use Recreational Drug Use: No ED ROS GENERAL - Review of Systems Review Of Systems: Comprehensive ROS is negative, except as noted in HPI. ED EXAM, GENERAL - Physical Exam Exam: See Below (see dictation) Course - Vital Signs Last Recorded V/S: Last Vital Signs Temp 97.2 F 07/03/19 16:01 Pulse 57 L 07/03/19 16:01 Resp 18 07/03/19 16:01 BP 140/59 L 07/03/19 16:01 Pulse Ox 100 07/03/19 16:01 - Orders/Labs/Meds Labs: Laboratory Tests 07/03/19 07/03/19 Range/Units 16:30 16:30 Urine Color YELLOW Urine Appearance CLEAR Urine pH 8.5 H (5.0-8.0) Ur Specific [place] 1.015 (1.001-1.035) Urine Protein NEGATIVE (NEGATIVE) mg/dL Urine Glucose (UA) NEGATIVE (NEGATIVE) mg/dL Urine Ketones NEGATIVE (NEGATIVE) mg/dL Urine Occult Blood NEGATIVE (NEGATIVE) Urine Nitrite NEGATIVE (NEGATIVE) Urine Bilirubin NEGATIVE (NEGATIVE) Urine Urobilinogen 0.2 (<2.0) EU/dL Ur Leukocyte Esterase NEGATIVE (NEGATIVE) Urine HCG, Qual NEGATIVE (NEGATIVE) Meds: Medications Discontinued Medications Generic Name Dose Route Start Last Admin Trade Name Freq PRN Reason Stop Dose Admin Diphenhydramine HCl 50 mg 07/03/19 16:10 07/03/19 16:40 Benadryl IVPUSH 07/03/19 16:11 50 mg ONETIME ONE Administration Sodium Chloride 1,000 mls @ 999 mls/hr 07/03/19 16:10 07/03/19 16:33 Normal Saline IV 07/03/19 17:10 999 mls/hr STAT ONE Administration Ketorolac Tromethamine 30 mg 07/03/19 17:00 07/03/19 17:22 Toradol IVPUSH 07/03/19 17:01 30 mg ONETIME ONE Administration Metoclopramide HCl 10 mg 07/03/19 16:10 07/03/19 16:37 Reglan IV 07/03/19 16:11 10 mg ONETIME ONE Administration Ondansetron HCl 4 mg 07/03/19 16:10 07/03/19 16:34 Zofran IVPUSH 07/03/19 16:11 4 mg ONETIME ONE Administration Departure - Departure Time of Disposition: 18:07 Disposition: Home, Self-Care 01 Clinical Impression: Headache Qualifiers: Headache type: unspecified Headache chronicity pattern: acute headache Intractability: not intractable Qualified Code(s): R51 - Headache - Discharge Information Referrals: PCP,Unobtain [Primary Care Provider] - Forms: ED Department Discharge Additional Instructions: The following information is given to patients seen in the emergency department who are being discharged to home. This information is to outline your options for follow-up care. We provide all patients seen in our emergency department with a follow-up referral. The need for follow-up, as well as the timing and circumstances, are variable depending upon the specifics of your emergency department visit. If you don't have a primary care physician on staff, we will provide you with a referral. We always advise you to contact your personal physician following an emergency department visit to inform them of the circumstance of the visit and for follow-up with them and/or the need for any referrals to a consulting specialist. The emergency department will also refer you to a specialist when appropriate. This referral assures that you have the opportunity for follow-up care with a specialist. All of these measure are taken in an effort to provide you with optimal care, which includes your follow-up. Under all circumstances we always encourage you to contact your private physician who remains a resource for coordinating your care. When calling for follow-up care, please make the office aware that this follow-up is from your recent emergency room visit. If for any reason you are refused follow-up, please contact the [facility] Emergency Department at and asked to speak to the emergency department charge nurse. [facility] [address] [place] [address] [id number] [address] [address] 1. Encourage small but frequent sips of fluid to prevent dehydration. 2. You can alternate ibuprofen and Tylenol as directed for pain and discomfort. 3. Follow up with your primary care provider as discussed. Return to the ED as needed and as discussed.
[2019-07-03] MEDS ORDERED: Ketorolac 30 MG/ML SDV IVPUSH ONE (17:00)
--- NOTE | 2019-07-03 17:55 | CT ---
INDICATION: Headache TECHNIQUE: CT head without contrast. COMPARISON: None available FINDINGS: The ventricles and sulci are within normal limits. There is no mass effect or midline shift. There is no loss of cox-white differentiation. There is no evidence of a gross acute intracranial hemorrhage. No acute calvarial fracture is seen. The visualized paranasal sinuses and mastoid air cells are clear. The visualized orbits are within limits. IMPRESSION: No evidence of an acute intracranial hemorrhage, mass effect or loss of cox-white differentiation. Dictated by Ulisses Gonzalez MD @ 07/03/2019 5:52:08 PM Please note that all CT scans at this facility use dose modulation, iterative reconstruction, and/or weight-based dosing when appropriate to reduce radiation dose to as low as reasonably achievable. Dictated by: Ulisses Gonzalez MD @ 07/03/2019 17:53:12 (Electronically Signed)
== END 2019-07-03 18:23 | disposition home or self-care (01) ==
LOC: MW.ED 16:00
DX: R51 Headache (principal); E66.9 Obesity, unspecified; Z68.29 Body mass index [BMI] 29.0-29.9, adult
CPT/HCPCS: 70450; 81003; 81025; 96361; 96374; 96375; 99284; J1200; J1885; J2405; J2765; J7030

== ENCOUNTER 2022-05-12 08:45 | Inpatient (IN) | payer SELFPAY ==
[~2022-05-12 08:45] MED LIST: Citric Acid/Sodium Citrate Solution 30 ML Cup PO ONE; Famotidine 20 MG/2 ML SDV IV ONE
[2022-05-13] MEDS ORDERED: Lactated Ringers 1,000 ML IV ONE ×2 (00:45→06:45)
[2022-05-13] MEDS ORDERED: Nalbuphine HCl 10 MG/ 1ML Amp IV ONE (04:05)
[2022-05-13] MEDS ORDERED: Acetaminophen/oxyCODONE 325-5 MG Tab PO ONE (14:30)
[2022-05-13] MEDS ORDERED: Ibuprofen 800 MG Tab PO ONE (18:30)
[2022-05-13] MEDS ORDERED: Ondansetron 4 MG/2 ML SDV IVPUSH ONE (22:13)
[2022-05-14] MEDS ORDERED: Ibuprofen 800 MG Tab PO ONE ×2 (07:09→14:12)
[2022-05-14] MEDS ORDERED: Furosemide 20 MG/2 ML VIAL IV ONE ×2 (09:00→14:12)
[2022-05-15] MEDS ORDERED: Ibuprofen 800 MG Tab PO ONE ×2 (00:30→06:35)
== END 2022-05-15 16:20 | disposition home or self-care (01) | DRG 788 ==
LOC: MW.ZCENSUS 08:45
PROVIDERS: ADMIT Pediatrics; ATTEND Obstetrics & Gynecology Obstetrics
PROC: 10D00Z1 Extraction of Products of Conception, Low, Open Approach (ICD-10-PCS; principal; 2022-05-12)
DX: O34.211 Maternal care for low transverse scar from previous cesarean delivery (principal); Z3A.38 38 weeks gestation of pregnancy; Z37.0 Single live birth
CPT/HCPCS: 01961; 59025; 64488; A9270-GY; J1940; J2300; J2405; J3490; J7120

== ENCOUNTER 2023-06-06 17:59 | Emergency (ER) | payer MEDICAID ==
[2023-06-06] MEDS ORDERED: Sodium Chloride 0.9% 250 ML IV ONE (18:28)
[2023-06-06 19:16] LABS: BASOPHILS ABSOLUTE AUTO 0.03 K/uL (0.00-0.20); BASOPHILS PERCENT AUTO 0.5 % (0.0-1.0); EOSINOPHILS ABSOLUTE AUTO 0.09 K/uL (0.00-0.45); EOSINOPHILS PERCENT AUTO 1.6 % (0.0-6.0); HEMATOCRIT 35.7 % (37.0-47.0); HEMOGLOBIN 12.5 g/dL (12.0-16.0); IMMATURE GRAN ABSOLUTE AUTO 0.02 K/uL (0.00-0.05); IMMATURE GRAN PERCENT AUTO 0.4 % (0.0-0.4); LYMPHOCYTES ABSOLUTE AUTO 1.34 K/uL (1.00-4.80); LYMPHOCYTES PERCENT AUTO 24.2 % (24.0-44.0); MEAN CORPUSCULAR HEMOGLOBIN 32.1 pg (28.0-32.0); MEAN CORPUSCULAR VOLUME 91.5 fL (83.0-99.0); MEAN PLATELET VOLUME 11.2 fL (9.4-12.3); MONOCYTES ABSOLUTE AUTO 0.75 K/uL (0.00-0.80); MONOCYTES PERCENT AUTO 13.6 % (0.0-8.0); NEUTROPHILS PERCENT AUTO 59.7 % (41.0-71.0); PLATELET COUNT,PLT 231 K/uL (150-400); WHITE BLOOD CELL COUNT,WBC 5.53 K/uL (3.9-11.3)
[2023-06-06 19:41] LABS: ALBUMIN 4.4 g/dL (3.4-5.0); BILIRUBIN TOTAL 0.7 mg/dL (0.2-1.0); CALCIUM 9.9 mg/dL (8.5-10.1); CARBON DIOXIDE,CO2 26.6 mmol/L (21.0-32.0); CREATININE 6.2 mg/dL (0.6-1.0); EST CRCL DRUG DOSING (CG) 11.86 mL/min; MAGNESIUM 1.8 mg/dL (1.8-2.4); POTASSIUM,K 5.3 mmol/L (3.5-5.1); PROTEIN TOTAL,TP 8.8 g/dL (6.4-8.2)
[2023-06-06] MEDS ORDERED: Calcium Gluconate 10% 1 GM/10 ML SDV IVPUSH ONE (20:19)
[2023-06-06] MEDS ORDERED: Ondansetron 4 MG/2 ML SDV IVPUSH ONE (20:19)
[2023-06-06] MEDS ORDERED: 50% Dextrose in Water 50 ML Syringe IVPUSH ONE (20:20)
[2023-06-06] MEDS ORDERED: Insulin Regular, Human 100 Units/ML 10 ML Vial IVPUSH ONE (20:20)
[2023-06-06] MEDS ORDERED: Sodium Chloride 0.9% 500 ML IV ONE (20:21)
[2023-06-06] MEDS ORDERED: Metoclopramide 10 MG/2 ML SDV IVPUSH ONE (20:42)
[2023-06-06] MEDS ORDERED: diphenhydrAMINE 50 MG/ML SDV IVPUSH ONE (20:42)
[2023-06-06] MEDS ORDERED: Ketorolac 30 MG/ML SDV IVPUSH ONE (20:42)
[2023-06-06 20:48] LABS: CORONAVIRUS COVID-19 NAA NEGATIVE (NEGATIVE); INFLUENZA A NAA NEGATIVE (NEGATIVE); INFLUENZA B NAA NEGATIVE (NEGATIVE)
[2023-06-06] MEDS ORDERED: LORazepam 2 MG/ML SDV IVPUSH ONE (21:18)
== END 2023-06-07 01:39 | disposition home or self-care (01) ==
LOC: MW.ED 17:59
DX: R41.82 Altered mental status, unspecified (principal); G43.909 Migraine, unspecified, not intractable, without status migrainosus; E85.9 Amyloidosis, unspecified; N18.6 End stage renal disease; E66.9 Obesity, unspecified; Z68.24 Body mass index [BMI] 24.0-24.9, adult; Z98.890 Other specified postprocedural states; Z20.822 Contact with and (suspected) exposure to COVID-19
CPT/HCPCS: 0240U; 36415; 70450; 71045; 74176; 80053; 82947; 83735; 84484; 84703; 85025; 93005; 96361; 96374; 96375; 99285; J0612; J1200; J1885; J2060; J2405; J2765; J7030; 93010; 99284; J1815-GY; J3490

== ENCOUNTER 2023-07-24 19:00 | Emergency (ER) | payer MEDICAID ==
[2023-07-24] MEDS ORDERED: Sodium Chloride 0.9% 2.5 ML Syringe FLUSH PRN (19:17)
[2023-07-24] MEDS ORDERED: Sodium Chloride 0.9% 10 ML Syringe FLUSH PRN (19:17)
[2023-07-24 19:38] LABS: BASOPHILS ABSOLUTE AUTO 0.04 K/uL (0.00-0.20); BASOPHILS PERCENT AUTO 0.4 % (0.0-1.0); EOSINOPHILS ABSOLUTE AUTO 0.17 K/uL (0.00-0.45); EOSINOPHILS PERCENT AUTO 1.8 % (0.0-6.0); HEMATOCRIT 34.9 % (37.0-47.0); HEMOGLOBIN 12.1 g/dL (12.0-16.0); IMMATURE GRAN ABSOLUTE AUTO 0.06 K/uL (0.00-0.05); IMMATURE GRAN PERCENT AUTO 0.6 % (0.0-0.4); LYMPHOCYTES ABSOLUTE AUTO 2.24 K/uL (1.00-4.80); LYMPHOCYTES PERCENT AUTO 23.2 % (24.0-44.0); MEAN CORPUSCULAR HEMOGLOBIN 32.6 pg (28.0-32.0); MEAN CORPUSCULAR HGB CONC 34.7 g/dL (32.0-36.0); MEAN CORPUSCULAR VOLUME 94.1 fL (83.0-99.0); MEAN PLATELET VOLUME 10.3 fL (9.4-12.3); MONOCYTES ABSOLUTE AUTO 1.31 K/uL (0.00-0.80); MONOCYTES PERCENT AUTO 13.6 % (0.0-8.0); NEUTROPHILS ABSOLUTE AUTO 5.82 K/uL (1.80-7.70); NEUTROPHILS PERCENT AUTO 60.4 % (41.0-71.0); PLATELET COUNT,PLT 206 K/uL (150-400); RED BLOOD CELL COUNT 3.71 M/uL (4.10-5.30); WHITE BLOOD CELL COUNT,WBC 9.64 K/uL (3.9-11.3)
[2023-07-24 20:14] LABS: A/G RATIO 1.4 (0.9-1.6); ALBUMIN 3.9 g/dL (3.4-5.0); BILIRUBIN TOTAL 0.4 mg/dL (0.2-1.0); CALCIUM 9.6 mg/dL (8.5-10.1); CARBON DIOXIDE,CO2 27.3 mmol/L (21.0-32.0); CREATININE 10.8 mg/dL (0.6-1.0); EST CRCL DRUG DOSING (CG) 5.75 mL/min; POTASSIUM,K 4.3 mmol/L (3.5-5.1); PROTEIN TOTAL,TP 6.7 g/dL (6.4-8.2)
[2023-07-24 20:15] LABS: CORONAVIRUS COVID-19 NAA NEGATIVE (NEGATIVE); INFLUENZA A NAA NEGATIVE (NEGATIVE); INFLUENZA B NAA NEGATIVE (NEGATIVE); RESPIRATORY SYNCYTIAL VIR NAA NEGATIVE (NEGATIVE)
[2023-07-24 20:15] LABS: MAGNESIUM 1.9 mg/dL (1.8-2.4); PHOSPHORUS 7.2 mg/dL (2.6-4.7)
== END 2023-07-24 20:51 | disposition home or self-care (01) ==
LOC: MW.ED 19:00
DX: R06.00 Dyspnea, unspecified (principal); E66.9 Obesity, unspecified; Z20.822 Contact with and (suspected) exposure to COVID-19; Z79.899 Other long term (current) drug therapy; Z68.28 Body mass index [BMI] 28.0-28.9, adult
CPT/HCPCS: 0241U; 36415; 71046; 80053; 83690; 83735; 84100; 84484; 84703; 85025; 93005; 99285; J3490